=== PATIENT | male | born 1950 | race Caucasian/White ===

== ENCOUNTER 2019-06-22 06:55 | Day surgery (SDC) | payer BC, MEDICARE ==
[2019-06-21 08:36] VITALS: BMI 27.1
[~2019-06-22 06:55] MED LIST: LACTATED RINGERS 1,000 ML IV SCH; LIDOCAINE 1% 20 ML VIAL (10MG/ML) FOR IV START INTRADERMA PRN
[2019-06-22 07:22] VITALS: RESP 16; TEMP 98.3
[2019-06-22] MEDS ORDERED: PROPOFOL 10 MG/ML 20 ML VIAL IV ONE (07:32)
[2019-06-22] MEDS ORDERED: LIDOCAINE 1% INJ 10MG/ML (20 ML MDV) ONE (07:32)
--- NOTE | 2019-06-22 08:02 | P.PCN ---
Date of Procedure: 06/22/19 Procedure(s) Performed: Brief history: Patient is a pleasant 69-year-old white female, scheduled for an elective upper endoscopy as well as colonoscopy as a part of evaluation of iron deficiency anemia. He also has long standing history of GERD and takes Prilosec 20 mg twice daily.. Procedure performed: Esophagogastroduodenoscopy with biopsy Colonoscopy with snare polypectomy Preoperative diagnosis: GERD 9 deficiency anemia Anest[place]: [facility] [place] Procedure: After informed consent was obtained from the patient was brought into the endoscopy unit and IV sedation was administered by anesthesia under continuous monitoring. Initially upper endoscopy was done. The Olympus GF 160 video endoscope was inserted inserted into the mouth and esophagus intubated without any difficulty and was gradually advanced into the stomach and duodenum and carefully examined. The bulb and second part of the duodenum appeared normal. The scope was then withdrawn into the stomach adequately insufflated with air and upon careful examination the antrum had mild gastritis and biopsies were done from this area. The body, cardia and fundus appeared normal. there were multiple small gastric polyps identified which were biopsied. The scope was then withdrawn into the esophagus. The GE junction was located at 40 cm to the incisors. It appeared regcircumferential erythema consistent with LA grade a reflux esophagitis.Rest of the esophagus appeared normal. Patient tolerated the procedure well. At this time the patient continued to remain sedation. Initial digital rectal examination was normal. Olympus CF 160 video colonoscope was then inserted into the rectum and gradually advanced to the cecum without any difficulty. Careful examination was performed as the scope was gradually being withdrawn. The prep was excellent. The cecum, appeared normal. In the ascending colon there was a 5 limited sessile polyp that was removed by snare polypectomy. In the hepatic flexure there was another 5 mm sessile polyp removed by snare polypectomy. Rest of the ascending colon, transverse colon, descending colon, sigmoid colon and rectum appeared normal. Scattered sigmoidal diverticula seen. Retroflexion was performed in the rectum and no lesions were noted. Patient tolerated the procedure well. Impression: 1. Upper endoscopy revealed mild antral gastritis, small multiple small gastric polyps and LA grade a reflux esophagitis 2. Colonoscopy revealed 5 mm ascending colon polyp and 5 mm hepatic flexure polyp status post snare polypectomy and scattered sigmoid diverticulosis. Recommendations: Findings of this examination were discussed with the patient as well as his family. He was advised to follow with the biopsy result. He was advised to resume Xarelto today. If the biopsy shows an adenoma he can have a repeat colonoscopy in 5 years
[2019-06-22 08:33] VITALS: BP 156/74; PULSE 60
== END 2019-06-22 08:45 | disposition home or self-care (01) ==
LOC: ORWHC2ENDO 06:55
PROVIDERS: ATTEND Internal Medicine Gastroenterology
DX: K21.0 Gastro-esophageal reflux disease with esophagitis (principal); K29.50 Unspecified chronic gastritis without bleeding; K57.30 Diverticulosis of large intestine without perforation or abscess without bleeding; K31.7 Polyp of stomach and duodenum; D12.2 Benign neoplasm of ascending colon; D12.3 Benign neoplasm of transverse colon; I10 Essential (primary) hypertension; I48.91 Unspecified atrial fibrillation; F32.9 Major depressive disorder, single episode, unspecified; Z79.899 Other long term (current) drug therapy
CPT/HCPCS: 88305; 45385; 43239; J2001; J2704

== ENCOUNTER → 2020-10-16 | Outpatient (CLI) | payer MEDICARE ==
--- NOTE | 2020-10-16 13:25 | US ---
EXAMINATION TYPE: US venous doppler duplex LE DATE OF EXAM: 10/16/2020 12:54 PM COMPARISON: NONE CLINICAL HISTORY: R22.40 swelling lower limbs. bilateral ankle swelling, no h/o DVT SIDE PERFORMED: Bilateral TECHNIQUE: The lower extremity deep venous system is examined utilizing real time linear array sonog garcía with graded compression, doppler sonography and color-flow sonography. VESSELS IMAGED: Common Femoral Vein Deep Femoral Vein Greater Saphenous Vein * Femoral Vein Popliteal Vein Small Saphenous Vein * Proximal Calf Veins (* superficial vessels) There is normal flow, compressibility, vascular waveforms. Right Leg: Negative for DVT Left Leg: Negative for DVT IMPRESSION: No evident deep venous thrombosis at or above the knees.
== END | disposition home or self-care (01) ==
LOC: RADUSWWP 12:26
PROVIDERS: ATTEND Family Medicine
DX: R22.40 Localized swelling, mass and lump, unspecified lower limb (principal)
CPT/HCPCS: 93970

== ENCOUNTER 2022-04-07 12:56 | Emergency (ER) | payer MEDICARE ==
[2022-04-07 13:24] VITALS: TEMP 98
--- NOTE | 2022-04-07 14:02 | ED ---
General Adult HPI - General Chief complaint: Upper Respiratory Infection Stated complaint: Covid+,Wants antibodies Time Seen by Provider: 04/07/22 13:30 Source: patient, RN notes reviewed, old records reviewed Mode of arrival: ambulatory Limitations: no limitations - History of Present Illness Initial comments: 71-year-old male presenting for evaluation of congestion, no difficulty breathing. Patient tested positive for coronavirus at home. He's had total 4 vaccines against coronavirus. - Related Data Home Medications Medication Instructions Recorded Confirmed Ferrous Sulfate [Iron] 325 mg PO DAILY 06/21/19 06/22/19 Lisinopril-Hctz 20-12.5 mg 1 tab PO DAILY 06/21/19 06/22/19 [Zestoretic 20-12.5] Meriva 500 Sf Supplement 1 dose PO DAILY 06/21/19 Metoprolol Tartrate [Lopressor] 25 mg PO BID 06/21/19 06/22/19 Multivit-Min/FA/Lycopen/Lutein 1 each PO DAILY 06/21/19 06/22/19 [Centrum Silver Tablet] Niacin 1,000 mg PO DAILY 06/21/19 06/22/19 Omeprazole [PriLOSEC] 20 mg PO BID 06/21/19 06/22/19 Omeprazole [PriLOSEC] 40 mg PO HS 06/21/19 06/22/19 Pravastatin Sodium [Pravachol] 80 mg PO HS 06/21/19 06/22/19 Rivaroxaban [Xarelto] 20 mg PO DAILY 06/21/19 06/22/19 Venlafaxine HCl [Effexor] 37.5 mg PO DAILY 06/21/19 06/22/19 buPROPion HCL [buPROPion HCL SR] 150 mg PO BID 06/21/19 06/22/19 Allergies Allergy/AdvReac Type Severity Reaction Status Date / Time No Known Allergies Allergy Verified 04/07/22 13:24 Review of Systems ROS Statement: Those systems with pertinent positive or pertinent negative responses have been documented in the HPI. ROS Other: All systems not noted in ROS Statement are negative. Past Medical History Past Medical History: Atrial Fibrillation, GERD/Reflux, Hypertension History of Any Multi-Drug Resistant Organisms: None Reported Additional Past Surgical History / Comment(s): SANTO-ANAL LESION Past Anesthesia/Blood Transfusion Reactions: No Reported Reaction Past Psychological History: Anxiety, Depression Past Alcohol Use History: None Reported Past Drug Use History: Cocaine - Past Family History Father Family Medical History: Cancer Additional Family Medical History / Comment(s): LUNG CANCER General Exam Limitations: no limitations General appearance: alert, in no apparent distress Head exam: Present: atraumatic, normocephalic Eye exam: Present: normal appearance, PERRL ENT exam: Present: mucous membranes moist Neck exam: Present: normal inspection Respiratory exam: Present: normal lung sounds bilaterally. Absent: respiratory distress, wheezes Cardiovascular Exam: Present: regular rate, normal rhythm GI/Abdominal exam: Present: soft. Absent: distended, tenderness Extremities exam: Present: normal inspection, normal capillary refill. Absent: pedal edema Neurological exam: Present: alert, oriented X3, CN II-XII intact. Absent: motor sensory deficit Psychiatric exam: Present: normal affect, normal mood Skin exam: Present: warm, dry, intact. Absent: cyanosis, diaphoretic Course Vital Signs 04/07/22 13:20 Temperature 98.0 F Pulse Rate 63 Respiratory 20 Rate Blood Pressure 125/70 O2 Sat by Pulse 95 Oximetry Medical Decision Making - Medical Decision Making 71-year-old male with coronavirus, well-appearing stable vitals, previously vaccinated. Patient does meet for monoclonal antibodies, transfused in the emergency department, given strict return parameters, instructed take vitamin C, vitamin D, and syncope. Disposition Clinical Impression: COVID-19 Disposition: HOME SELF-CARE Condition: Fair Instructions (If sedation given, give patient instructions): COVID-19 (Coronavirus Disease 2019) (ED) Is patient prescribed a controlled substance at d/c from ED?: No Referrals: Michael Scanlon MD [Primary Care Provider] - 1-2 days Time of Disposition: 15:00
[2022-04-07] MEDS ORDERED: BEBTELOVIMAB (EUA) 175 MG/2 ML VIAL IV ONE (14:30)
[2022-04-07 15:21] VITALS: BP 132/72; PULSE 60; RESP 18
== END 2022-04-07 15:21 | disposition home or self-care (01) ==
LOC: EC 12:56
DX: U07.1 COVID-19 (principal); I10 Essential (primary) hypertension; I48.91 Unspecified atrial fibrillation; K21.9 Gastro-esophageal reflux disease without esophagitis; F32.A Depression, unspecified; F41.9 Anxiety disorder, unspecified; F14.90 Cocaine use, unspecified, uncomplicated; Z79.01 Long term (current) use of anticoagulants; Z79.899 Other long term (current) drug therapy
CPT/HCPCS: 99283; Q0222

== ENCOUNTER → 2022-05-09 | Outpatient (CLI) | payer MEDICARE ==
--- NOTE | 2022-05-09 10:42 | CT ---
EXAMINATION TYPE: CT facial bones wo con DATE OF EXAM: 05/09/2022 COMPARISON: None HISTORY: sinus congestion, recurrent sinusitis CT DLP: 532.5 mGycm CONTRAST: 0 mL of Isovue 300 The paranasal sinuses are examined in the axial plane at 2 mm thick sections. Reconstructed images i n the coronal plane were obtained. There is dental amalgam scatter artifact. Mucosal thickening as do the bilateral maxillary sinuses. An air-fluid level appears to be within the maxillary sinuses. Correlate for acute maxillary sinusitis. Tarsal opacification is present through scattered ethmoid air cells. The sphenoid sinuses are clear. Right frontal sinus is aplastic. Left frontal sinus is clear. The septum is evaluated. There is septal deviation to the left. Bilateral tameka bullosa are present . The ostiomeatal units are obstructed bilaterally IMPRESSIONS: 1. Clinical correlation recommended for acute maxillary sinusitis. Some chronic sinusitis may be wit hin ethmoid air cells. Ostiomeatal units are obstructed bilaterally. There is left septal deviation.
--- NOTE | 2022-05-09 10:44 | MR ---
EXAMINATION TYPE: MR iac wo/w con DATE OF EXAM: 05/09/2022 COMPARISON: None HISTORY: Ear infections, left sided hearing loss. TECHNIQUE: Multiplanar, multisequence images of the brain and brainstem is performed without and with IV contras t, utilizing 8.5 mL intravenous Gadavist . FINDINGS: Diffusion weighted images demonstrate no evidence of a recent infarct or other diffusion ab normality. There is moderate. Ventricular prominence greater centrally. Changes of chronic sinusitis noted. Orbits are symmetric. Confluent and focal numerous areas of abnor mal signal in the white matter in white matter ischemia.. Midline structures demonstrate normal morphology. The craniocervical junction appears within normal limits. Post contrast images demonstrate no abnormal enhancement. No cerebellopontine angle mass or acoustic schwannoma. Mastoid air cells appear clear. Benign-appearing cysts suspected within the left retroareolar ventral soft tissues. IMPRESSION: 1. No evidence of cerebellopontine angle mass or acoustic schwannoma. 2. Changes of chronic sinusitis 3. Degenerative and nonspecific white matter change most typical remote white matter ischemia. Greate r central dilation suggests a component of normal pressure hydrocephalus within the differential diag nosis. Correlate clinically.
== END | disposition home or self-care (01) ==
LOC: RADCTMAIN 08:20
PROVIDERS: ATTEND Otolaryngology Facial Plastic Surgery
DX: H90.3 Sensorineural hearing loss, bilateral (principal); G93.89 Other specified disorders of brain; J32.9 Chronic sinusitis, unspecified
CPT/HCPCS: 70486; 70553; A9585

== ENCOUNTER → 2022-07-01 | Outpatient (CLI) | payer MEDICARE ==
--- NOTE | 2022-07-01 13:32 | CT ---
EXAMINATION TYPE: CT brain wo con CT DLP: 1153 mGycm, Automated exposure control for dose reduction was used. DATE OF EXAM: 07/01/2022 1:22 PM COMPARISON: CT facial bones 05/09/2022, MRI IAC 05/09/2022. CLINICAL INDICATION:Male, 72 years old with history of R41.3 amnesia, Short term memory loss TECHNIQUE: Brain: Multiple axial CT images of the brain were obtained without IV contrast. Coronal and sagittal reformats reviewed. FINDINGS: Brain: Extra-axial spaces: No abnormal extra-axial fluid collections. Ventricular system: Moderate ventricular prominence centrally. Cerebral parenchyma: No acute intraparenchymal hemorrhage or mass effect. The pugh-white junction is well differentiated. Scattered hypoattenuating areas are seen within the white matter. Cerebral vol ume loss. Cerebellum: Unremarkable. Mass effect: No evidence of midline shift. Intracranial vasculature: unremarkable Soft tissues: Normal. Calvarium/osseous structures: No depressed skull fracture. Paranasal sinuses and mastoid air cells: The mastoid air cells are clear. Minimal mucosal thickening of the bilateral maxillary sinuses. Visualized orbits: Orbital contents are intact. IMPRESSION: 1. No acute intracranial process. 2. Moderate ventricular prominence centrally again which is more than expected for degree of cerebral volume loss. This may represent normal pressure hydrocephalus. Correlate clinically. 3.Nonspecific white matter changes, likely secondary to chronic small vessel ischemic disease.
== END | disposition home or self-care (01) ==
LOC: RADCTMAIN 13:01
PROVIDERS: ATTEND Family Medicine
DX: I67.82 Cerebral ischemia (principal)
CPT/HCPCS: 70450

== ENCOUNTER → 2022-07-24 | Outpatient (CLI) | payer MEDICARE ==
--- NOTE | 2022-07-25 07:15 | US ---
EXAMINATION TYPE: US scrotum with doppler. Grayscale and color Doppler Duplex imaging performed of brianna morales scrotum. DATE OF EXAM: 07/24/2022 COMPARISON: NONE CLINICAL HISTORY: N43.3 HYDROCELE, UNSPECIFIED. hydrocele EXAM MEASUREMENTS: TESTICLES: Right Testicle: 4.5 x 2.5 x 3.7 cm Left Testicle: 4.6 x 2.7 x 3.7 cm EPIDIDYMIS HEAD: Right Epididymis: 1.5 cm Left Epididymis: unable to visualize Doppler performed to assess for testicular vascularity; good bilateral color flow and waveforms are s een. There is no evidence of testicular torsion. Presence of hydroceles: yes, fluid collection lateral/inferior to right testicle = 4.9 x 4.2cm and m edial/superior to left testicle = 6.6 x 6.2cm *cystic area right epididymis = 0.9 x 1.2cm IMPRESSION: 1. Right-sided hydrocele. 2. Right-sided epididymal head cyst.
== END | disposition home or self-care (01) ==
LOC: RADUSWWP 15:40
PROVIDERS: ATTEND Family Medicine
DX: N43.3 Hydrocele, unspecified (principal)
CPT/HCPCS: 76870; 93975

== ENCOUNTER → 2023-04-14 | Outpatient (CLI) | payer MEDICARE ==
[2023-04-14 16:07] LABS: African American GFR (CKD) 66 (>60 ml/min/1.73 sqM); Blood Urea Nitrogen 24 mg/dL (9-20); Non-African American GFR(CKD) 57 (>60 ml/min/1.73 sqM)
--- NOTE | 2023-04-14 19:04 | CT ---
EXAMINATION TYPE: CT abdomen pelvis w con CT DLP: 1092.8 mGycm, Automated exposure control for dose reduction was used. DATE OF EXAM: 04/14/2023 5:15 PM COMPARISON: None CLINICAL INDICATION:Male, 72 years old with history of R10.9 abd pain; LUQ abdomen pain and bloating x1wk. TECHNIQUE: Axial CT of the abdomen and pelvis. Sagittal and coronal reformats were created on a [employer] workstation. Contrast used:100 ml mL of Isovue 300 with IV Contrast, (none if empty) Oral contrast used: with Oral Contrast (none if empty) FINDINGS: LOWER CHEST: Unremarkable ABDOMEN LIVER: Likely bilateral hepatic cysts. GALLBLADDER AND BILE DUCTS: Unremarkable. PANCREAS: Unremarkable. SPLEEN: Unremarkable. ADRENAL GLANDS: Unremarkable. KIDNEYS AND URETERS: No evidence of hydronephrosis or renal calculus. The ureters are unremarkable. PELVIS BLADDER: Unremarkable REPRODUCTIVE: Prostate is enlarged in size measuring 5.1 cm in transverse dimension. ABDOMEN & PELVIS STOMACH AND BOWEL: . Scattered diverticula are noted throughout the colon. No evidence of bowel obstr uction. PERITONEUM/RETROPERITONEUM: No evidence of pneumoperitoneum or free fluid. VASCULATURE: No evidence of aortic aneurysm. MUSCULOSKELETAL: No acute osseous abnormalities. Moderate disc degeneration changes are present throu ghout the thoracolumbar spine. LYMPH NODES: No gross evidence for lymphadenopathy. SOFT TISSUE/ABDOMINAL WALL: Bilateral fat-containing inguinal hernias. IMPRESSION: 1. No definite evidence for acute process to explain the patient's left upper quadrant pain. There i s extensive colonic diverticula present. No evidence for acute diverticulitis at this time. 2. Bilateral fat-containing inguinal hernias. 3. Prostatomegaly correlate with serum PSA.
== END | disposition home or self-care (01) ==
LOC: RADCTMAIN 15:07
PROVIDERS: ATTEND Family Medicine
DX: K40.20 Bilateral inguinal hernia, without obstruction or gangrene, not specified as recurrent (principal); N40.0 Benign prostatic hyperplasia without lower urinary tract symptoms; K57.30 Diverticulosis of large intestine without perforation or abscess without bleeding
CPT/HCPCS: 82565; 84520; 74177; 36415; Q9967

== ENCOUNTER 2023-06-05 06:17 | Day surgery (SDC) | payer MEDICARE ==
[2023-06-03 14:31] VITALS: BMI 26.5
[2023-06-05 07:11] VITALS: TEMP 97.6
[2023-06-05] MEDS: LACTATED RINGERS 1,000 ML IV SCH ×2 (07:17→07:23)
[2023-06-05] MEDS ORDERED: LIDOCAINE 2% INJ 20 MG/ML (2 ML VIAL) ONE (07:25)
[2023-06-05] MEDS ORDERED: PROPOFOL 10 MG/ML 20 ML VIAL IV ONE (07:25)
--- NOTE | 2023-06-05 07:51 | P.PCN ---
Date of Procedure: 06/05/23 Procedure(s) Performed: Brief history: Patient is a pleasant 72-year-old white male scheduled for an elective upper endoscopy as well as colonoscopy as a part of evaluation of epigastric and left upper quadrant abdominal pain/pressure for the last 6 months duration. He scheduled for colonoscopy as a part of surveillance of prior history of colon polyps. Last colonoscopy was 5 years ago. Procedure performed: Esophagogastroduodenoscopy with biopsy Colonoscopy with biopsy Preoperative diagnosis: Epigastric and left upper quadrant abdominal pain. History of colon polyps Anesthesia: MAC Procedure: After informed consent was obtained from the patient was brought into the endoscopy unit and IV sedation was administered by anesthesia under continuous monitoring. Initially upper endoscopy was done. The Olympus GF 160 video endoscope was inserted inserted into the mouth and esophagus intubated without any difficulty and was gradually advanced into the stomach and duodenum and carefully examined. The bulb and second part of the duodenum appeared normal. The scope was then withdrawn into the stomach adequately insufflated with air and upon careful examination the antrum had mild gastritis and biopsies were done from this area. In the gastric body there were small gastric polyps i dentified which were biopsied. Rest of the body, cardia and fundus appeared normal. The scope was then withdrawn into the esophagus. The GE junction was located at 40 cm to the incisors. It appeared regular with no erythema erosions or ulcerations. Rest of the esophagus appeared normal. Patient tolerated the procedure well. At this time the patient continued to remain sedation. Initial digital rectal examination was normal. Olympus CF 160 video colonoscope was then inserted into the rectum and gradually advanced to the cecum without any difficulty. Careful examination was performed as the scope was gradually being withdrawn. The prep was excellent. The cecum appeared normal. Ascending colon there was a 3 mm polyp that was removed by cold biopsy. In the transverse colon there was a 5 limited polyp that was removed by cold biopsy. Rest of the, ascending colon, transverse colon, descending colon, sigmoid colon and rectum appeared normal. Scattered diffuse diverticulosis seen. Retroflexion was performed in the rectum and no lesions were noted. Patient tolerated the procedure well. Impression: 1. Upper endoscopy revealed mild antral gastritis and small gastric polyps 2. Colonoscopy revealed 3 mm ascending colon polyp and a 5 mm transverse colon polyp status post cold biopsy and scattered diffuse diverticulosis Recommendations: Findings of this examination were discussed with the patient as well as his family. He was advised to follow with the biopsy results. If the biopsy with adenoma he can have a repeat colonoscopy in 5 years.
[2023-06-05 08:11] VITALS: BP 188/86; PULSE 56; RESP 20
== END 2023-06-05 08:28 ==
LOC: ORWHC2ENDO 06:17
PROVIDERS: ATTEND Internal Medicine Gastroenterology
DX: Z12.11 Encounter for screening for malignant neoplasm of colon (principal); D12.2 Benign neoplasm of ascending colon; D12.3 Benign neoplasm of transverse colon; K31.7 Polyp of stomach and duodenum; K29.50 Unspecified chronic gastritis without bleeding; I10 Essential (primary) hypertension; E78.5 Hyperlipidemia, unspecified; F32.A Depression, unspecified; K21.9 Gastro-esophageal reflux disease without esophagitis; I48.91 Unspecified atrial fibrillation; Z79.01 Long term (current) use of anticoagulants; Z79.899 Other long term (current) drug therapy
CPT/HCPCS: 88305; 45380; 43239; J2704; J2001

== ENCOUNTER → 2024-03-11 | Outpatient (CLI) | payer MEDICARE ==
[2024-03-11 08:51] LABS: African American GFR (CKD) 85 (>60 ml/min/1.73 sqM); Blood Urea Nitrogen 23 mg/dL (9-20); Non-African American GFR(CKD) 73 (>60 ml/min/1.73 sqM)
--- NOTE | 2024-03-12 19:31 | CT ---
EXAMINATION TYPE: CT soft tissue neck w con CT DLP: 520 mGycm, Automated exposure control for dose reduction was used. DATE OF EXAM: 03/11/2024 9:08 AM COMPARISON: None. CLINICAL INDICATION:Male, 73 years old with history of K21.9 LARYNGEAL ESOPHAGEAL REFLUX; PHH, laryng eal/esophageal reflux TECHNIQUE: Standard enhanced CT of the neck. Axial sections with coronal and sagittal reformats were obtained. Contrast used:100 mL of Isovue 300 with IV Contrast, (None if empty) Oral contrast used: (None if empty) FINDINGS: Brain: Visualized portions are grossly unremarkable. Orbits: Bilateral aphakia. Sinuses: Grossly unremarkable. Spaces of the neck: Clear and symmetric. No parapharyngeal and mucosal spaces appear symmetric. No nicole spicious masses. Musculoskeletal: No acute osseous pathology. Lymph nodes: Multiple nonenlarged lymph nodes are seen along both anterior chains of the neck. Vascular structures: Visualized major arteries are patent without evidence of aneurysm. Thoracic Inlet/airway: Airway is patent. Groundglass appearance of the upper lungs which are partiall y visualized. Soft tissues/Thyroid: Thyroid and remainder of the soft tissues are unremarkable. Other: none. IMPRESSION 1. No definite evidence for abscess or significant abnormality. A parapharyngeal and mucosal space a ppears symmetric. 2. Ground glass appearance to the upper lungs could represent low lung volumes.
--- NOTE | 2024-03-14 14:47 | FL ---
ESOPHOGRAM. HISTORY: Dysphagia Esophagram was performed per the air contrast technique. The patient swallowed barium and effervesce nt crystals without difficulty or delay. Esophageal peristalsis and motility appear to be within normal limits. There is no evidence for filling defect, mass or diverticulum. Small reducible hiatal hernia seen. Subsequently single contrast cervical esophagram was performed which fails demonstrate evidence for a spiration penetration or mass. IMPRESSION: Small reducible hiatal hernia seen.
== END | disposition home or self-care (01) ==
LOC: RADCTMAIN 08:09
PROVIDERS: ATTEND Otolaryngology Otolaryngology/Facial Plastic Surgery
DX: K21.9 Gastro-esophageal reflux disease without esophagitis (principal); K44.9 Diaphragmatic hernia without obstruction or gangrene
CPT/HCPCS: 82565; 84520; 74220; 70491; 36415; Q9967

== ENCOUNTER → 2024-07-02 | Outpatient (CLI) | payer MEDICARE ==
--- NOTE | 2024-07-02 15:29 | MR ---
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 TECHNIQUE: Multi planar, multi sequence imaging was performed through the brain including: T1, T2, In version recovery, Diffusion weighted imaging, and gradient echo imaging. No gadolinium was given. FINDINGS: Mild cerebral atrophy with proportional dilation of ventricular system. Stable dilation of ventricula r system since 05/09/2022. Susceptibility blooming artifact in the right temporal lobe near the skull base series 501 image 241 measures roughly 6 mm not well appreciated on other sequences but may be l ow FLAIR/low T2 signal on the respective sequences. Scattered foci of high T2 signal intensity are se en within the periventricular white matter. Midline structures show no abnormality. Diffusion-weighte d imaging shows no evidence of restricted diffusion. The susceptibility weighted images do not reveal any evidence for micro-hemorrhage. The bone marrow signal is within normal limits. Paranasal sinuses and mastoid air cells: Mild scattered paranasal sinus disease. Visualized orbits: Bilateral aphakia IMPRESSION: 1. Stable dilation of ventricular system back to at least 05/09/2022. No evidence of intracranial mass or acute/subacute infarct. 2. Nonspecific white matter changes, likely secondary to small vessel ischemic disease. 3. Mild paranasal sinus disease throughout the ethmoid air cells and maxillary sinuses. 4. Susceptibility blooming artifact in the right temporal lobe possibly relating to vascular malforma tion versus prior hemorrhage versus cavernoma. Stable back to 05/09/2022. [facility], , 07/02/2024 3:27 PM
== END | disposition home or self-care (01) ==
LOC: RADMRIMAIN 14:10
PROVIDERS: ATTEND Family Medicine
DX: G91.2 (Idiopathic) normal pressure hydrocephalus
CPT/HCPCS: 70551

== ENCOUNTER → 2024-10-28 | Outpatient (CLI) | payer MEDICARE ==
--- NOTE | 2024-10-28 15:16 | CT ---
EXAMINATION TYPE: CT sinus wo con DATE OF EXAM: 10/28/2024 12:08 PM COMPARISON: 05/09/2022 CLINICAL INDICATION: Male, 74 years old with history of J32.9 CHRONIC SINUSITIS, UNSPECIFIED, sore th roat, TECHNIQUE: Noncontrast axial views of the paranasal sinuses were obtained. Coronal and sagittal refor matted images were obtained from the axial views for evaluation of nasal cavity, osteomeatal complex and skull base integrity. CT DLP: 424 mGycm, Automated exposure control for dose reduction was used. FINDINGS: PARANASAL SINUSES: Ongoing moderate mucosal thickening throughout the maxillary sinuses with bilateral air-fluid levels. There is frothy partial opacification left sphenoid sinus. Moderate to severe left and moderate right ethmoid sinus mucosal thickening. Air-fluid level left frontal sinus now present. Reactive humberto- osteogenesis is not seen. There is no destruction of the osseous preston of the paranasal sinuses. THE NASAL CAVITY: Mucosal thickening extends to the bilateral maxillary infundibula. There is leftward nasal septal deviation. The imaged brain again shows mild to moderate ventriculomegaly. Correlate to exclude a component of N PH. Mastoid air cells and middle ear cavities are well pneumatized. Reformatted images confirm above findings. IMPRESSION: 1. Moderate chronic sinus disease. Air-fluid levels/frothy opacification left frontal and left spheno id sinuses as well as the bilateral maxillary sinuses suggests superimposed acute sinusitis. 2. Leftward nasal septal deviation. 3. Similar enlargement of the ventricular system. Correlate to exclude a component of NPH. [facility], , 10/28/2024 3:14 PM
== END | disposition home or self-care (01) ==
LOC: RADCTMAIN 11:35
PROVIDERS: ATTEND Otolaryngology Otolaryngology/Facial Plastic Surgery
DX: J32.9 Chronic sinusitis, unspecified (principal); J34.2 Deviated nasal septum; J34.89 Other specified disorders of nose and nasal sinuses
CPT/HCPCS: 70486